=== PATIENT | female | born 1935 | race Two or more races ===

== ENCOUNTER → 2017-05-30 | Outpatient (CLI) | payer MEDICARE, MEDICAID ==
[~2017-05-30] MED LIST: ALEN70TA55 PO; LOVA40TA72 PO; METF-370 PO; OMEP20CA74 PO; VALS80TA44 PO
[2017-05-30 08:52] LABS: CONDITION Y; DEFINITIVE SEE PRINTOUT; Hematocrit 31.8 % (36.0-46.0); Hemoglobin 10.6 g/dL (12.2-16.2); Mean Corpuscular Hemoglobin 34.2 pg (28.0-32.0); Mean Corpuscular Hgb Conc. 33.3 g/dL (32.0-36.0); Mean Corpuscular Volume 102.6 fL (80.0-100.0); Mean Platelet Volume 9.5 fL (7.4-10.4); Platelet Count (auto) 187 10^3/uL (140-450); Red Cell Distribution Width 17.2 % (11.6-16.0); White Blood Cell 3.5 10^3/uL (4.4-10.8)
[2017-05-30 08:55] LABS: Metamyelocytes % 0; Myelocytes % 0; Promyelocytes % 0
[2017-05-30 09:01] LABS: Urine Bilirubin Negative (Negative); Urine Blood 1+ /uL (Negative); Urine Color Yellow (Yellow); Urine Glucose Normal (Normal); Urine Hyaline Cast FEW /lpf (0 - 2); Urine Ketone Negative (Negative); Urine Mucus FEW (None Seen); Urine Nitrite Negative (Negative); Urine RBC <1 /hpf (0 - 4); Urine Squamous Epithelial Cell FEW /hpf (<5); Urine Urobilinogen Normal (Negative); Urine pH 5.5 (5.0-8.0)
[2017-05-30 09:19] LABS: Albumin 3.3 g/dL (3.4-5.0); BUN/Creatinine Ratio 17.9; Bilirubin, Total 0.5 mg/dL (0.2-1.0); Calcium 9.4 mg/dL (8.5-10.1); Platelet Estimate Adequate; Potassium 3.6 mmol/L (3.5-5.1); Reactive Lymphocytes 2; Total Protein 7.8 g/dL (6.4-8.2)
[2017-05-30 09:20] LABS: Large Platelets FEW; Stomatocytes Few
== END | disposition home or self-care (01) ==
LOC: LAB 08:28
PROVIDERS: ATTEND Family Medicine
DX: E11.9 Type 2 diabetes mellitus without complications (principal)
CPT/HCPCS: 36415; 80053; 80061; 81001; 82043; 83036; 85007; 85027